=== PATIENT | female | born 1950 | race African-American/Black ===

== ENCOUNTER → 2016-10-08 | Outpatient (CLI) | payer MEDICAID ==
[2016-10-08 10:38] LABS: ANION GAP 14 (5-19); BLOOD UREA NITROGEN 10 mg/dL (7-20); CALCIUM 8.8 mg/dL (8.4-10.2); CARBON DIOXIDE 22 mmol/L (22-30); CHLORIDE 112 mmol/L (98-107); CHOLESTEROL 147.48 mg/dL (0-200); Direct HDL 21 mg/dL (>40); GLUCOSE 103 mg/dL (75-110); POTASSIUM 4.3 mmol/L (3.6-5.0); SODIUM 147.7 mmol/L (137-145); TRIGLYCERIDES 87 mg/dL (<150)
[2016-10-08 10:48] LABS: DIRECT LDL 103 mg/dL (<100)
== END ==
LOC: OD 09:40
PROVIDERS: ATTEND Internal Medicine Cardiovascular Disease
DX: I25.10 Atherosclerotic heart disease of native coronary artery without angina pectoris (principal); E78.5 Hyperlipidemia, unspecified; R79.82 Elevated C-reactive protein (CRP); R73.9 Hyperglycemia, unspecified; E74.9 Disorder of carbohydrate metabolism, unspecified; Z98.61 Coronary angioplasty status; Z95.1 Presence of aortocoronary bypass graft
CPT/HCPCS: 36415; 80048; 80061; 83036; 86141

== ENCOUNTER → 2016-12-19 | Outpatient (CLI) | payer MEDICAID ==
[2016-12-19 10:07] LABS: ANION GAP 13 (5-19); BLOOD UREA NITROGEN 8 mg/dL (7-20); CALCIUM 9.4 mg/dL (8.4-10.2); CARBON DIOXIDE 23 mmol/L (22-30); CHLORIDE 109 mmol/L (98-107); CREATININE RESULT 0.83 mg/dL (0.52-1.25); Direct HDL 31 mg/dL (>40); GLUCOSE 91 mg/dL (75-110); POTASSIUM 4.6 mmol/L (3.6-5.0); SODIUM 144.8 mmol/L (137-145); TRIGLYCERIDES 93 mg/dL (<150)
[2016-12-19 10:24] LABS: DIRECT LDL 178 mg/dL (<100)
== END ==
LOC: OD 08:54
PROVIDERS: ATTEND Internal Medicine Cardiovascular Disease
DX: E74.9 Disorder of carbohydrate metabolism, unspecified (principal); E78.5 Hyperlipidemia, unspecified; R73.09 Other abnormal glucose; I25.10 Atherosclerotic heart disease of native coronary artery without angina pectoris; Z98.61 Coronary angioplasty status; F17.200 Nicotine dependence, unspecified, uncomplicated
CPT/HCPCS: 36415; 80048; 80061; 83036

== ENCOUNTER 2017-01-01 21:25 | Emergency (ER) | payer MEDICAID ==
[2017-01-01] MEDS ORDERED: ACETAMINOPHEN 325 MG TABLET PO ONE (23:31)
[2017-01-01] MEDS ORDERED: OXYCODONE-ACETAMINOPHEN 5-325 MG TABLET PO ONE (23:31)
--- NOTE | 2017-01-01 23:33 | ER Document Report ---
ED General - General Chief Complaint: Hip Pain Stated Complaint: HIP PAIN Time Seen by Provider: 01/01/17 23:21 Notes: Patient is a 66-year-old female that comes emergency department with 2 complaints. First complaint is hip pain, she has pain in both hips, worse on the left, this is ongoing since her hip replacements reportedly, she states she also had a fall where she will forward on her knees 2 days ago, states she is slightly worse than usual with increased pains in her left hip. Her other complaint is nonproductive cough with chills and feeling like she is having fevers that started today. She denies shortness of breath, sore throat, headache, abdominal pain, chest pain. She denies flank pain or dysuria. Past medical history of CAD, hypertension, hyperlipidemia, denies history of diabetes. TRAVEL OUTSIDE OF THE [place] IN LAST 30 DAYS: No - Related Data Allergies/Adverse Reactions: No Known Allergies Allergy (Verified 04/05/13 11:13) Past Medical History - General Information source: Patient - Social History Smoking Status: Current Every Day Smoker Smoking Education Provided: Yes - <3 min Drug Abuse: None Lives with: Family Family History: Reviewed & Not Pertinent Patient has suicidal ideation: No Patient has homicidal ideation: No - Past Medical History Cardiac Medical History: Reports: Hx Coronary Artery Disease, Hx Heart Attack - 2008, CABG (2 vessels), Jun 2013 cardiac cath with stent x 1, Hx Hypertension Denies: Hx Atrial Fibrillation, Hx Congestive Heart Failure, Hx Hypercholesterolemia, Hx Peripheral Vascular Disease, Hx Heart Murmur Neurological Medical History: Denies: Hx Cerebrovascular Accident, Hx Seizures Renal/ Medical History: Denies: Hx Peritoneal Dialysis Malignancy Medical History: Denies: Hx Leukemia GI Medical History: Denies: Hx Crohn's Disease, Hx Gastroesophageal Reflux Disease, Hx Hiatal Hernia, Hx Irritable Bowel, Hx Liver Failure, Hx Ulcer Musculoskeltal Medical History: Reports Hx Arthritis, Denies Hx Fibromyalgia, Denies Hx Multiple Sclerosis, Denies Hx Muscular Dystrophy Psychiatric Medical History: Reports: Hx Depression Denies: Hx Bipolar Disorder, Hx Dementia, Hx Post Traumatic Stress Disorder, Hx Schizophrenia Traumatic Medical History: Denies: Hx Fractures Infectious Medical History: Denies: Hx HIV Past Surgical History: Reports: Hx Cardiac Surgery, Hx Coronary Artery Bypass Graft - 2008 (2 vessels), Hx Hysterectomy, Hx Orthopedic Surgery - bilateral hip replacements. Denies: Hx Appendectomy, Hx Bowel Surgery, Hx Section, Hx Cholecystectomy, Hx Colostomy, Hx Gastric Bypass Surgery, Hx Herniorrhaphy, Hx Mastectomy, Hx Pacemaker, Hx Tonsillectomy, Hx Tubal Ligation - Immunizations Hx Diphtheria, Pertussis, Tetanus Vaccination: No - unknown Review of Systems - Review of Systems Constitutional: See HPI EENT: No symptoms reported Cardiovascular: No symptoms reported Respiratory: See HPI Gastrointestinal: No symptoms reported Genitourinary: No symptoms reported Female Genitourinary: No symptoms reported Musculoskeletal: See HPI Skin: No symptoms reported Hematologic/Lymphatic: No symptoms reported Neurological/Psychological: No symptoms reported Physical Exam - Vital signs Vitals: Temp Pulse Resp BP Pulse Ox 100.1 F 95 16 121/72 96 01/01/17 21:29 01/01/17 21:29 01/01/17 21:29 01/01/17 21:29 01/01/17 21:29 Interpretation: Normal - General General appearance: Appears well, Alert In distress: None - HEENT Head: Normocephalic, Atraumatic Eyes: Normal Conjunctiva: Normal Extraocular movements intact: Yes Eyelashes: Normal Pupils: PERRL Nasal: Normal Mouth/Lips: Normal Mucous membranes: Normal Pharynx: Normal Neck: Normal - Respiratory Respiratory status: No respiratory distress Chest status: Nontender Breath sounds: Decreased air movement - mildly decreased bilaterally, otherwise clear and unremarkable, Nonproductive cough - occassional Chest palpation: Normal - Cardiovascular Rhythm: Regular. No: Tachycardia Heart sounds: Normal auscultation, S1 appreciated, S2 appreciated Murmur: No - Abdominal Inspection: Normal Distension: No distension Bowel sounds: Normal Tenderness: Nontender Organomegaly: No organomegaly - Back Back: Normal, Nontender - Extremities General upper extremity: Normal inspection, Nontender, Normal color, Normal ROM , Normal temperature General lower extremity: Other - Patient complains of pain over the anterior proximal thighs bilaterally, pain is worse over the left bursa area, no swelling , no abnormal erythema, range of motion is still intact. Normal distal neurovascular exam - Neurological Neuro grossly intact: Yes Cognition: Normal Orientation: AAOx4 Humble Coma Scale Eye Opening: Spontaneous Humble Coma Scale Verbal: Oriented Humble Coma Scale Motor: Obeys Commands Humble Coma Scale Total: 15 Speech: Normal Motor strength normal: LUE, RUE, LLE, RLE Sensory: Normal - Psychological Associated symptoms: Normal affect, Normal mood - Skin Skin Temperature: Warm Skin Moisture: Dry Skin Color: Normal Course - Re-evaluation Re-evalutation: Temperature of 100.1, patient has intermittent nonproductive cough on exam with some decreased breath sounds. Patient also has hip pain, although this is chronic. No leukocytosis on CBC, chemistry generally unremarkable, urinalysis does not show infection. Chest x-ray shows potential left lower lung mass. No actual fever of 100.4 or greater. No infection source noted. No headache or neck stiffness. Soft abdomen. CAT scan imaging also shows left lower lung mass concerning for malignancy with possible lymph node metastases. Also has incidental findings including cholelithiasis and previous ND which patient already knew about. Patient does not have any chest pain. I discussed these results in detail with both patient and daughter. They state they would like a referral to oncology. Patient will be provided with some medication for pain, provided with a copy of her imaging, she states she will follow-up tomorrow. Discussed return precautions in detail as well, patient and daughter state understanding and agreement. - Vital Signs Vital signs: Temp Pulse Resp BP Pulse Ox 98.4 F 80 18 120/64 99 01/02/17 03:13 01/02/17 03:13 01/02/17 03:13 01/02/17 03:13 01/02/17 03:13 - Laboratory Result Diagrams: 01/02/17 00:20 01/02/17 00:20 Laboratory results interpreted by me: 01/02/17 01/02/17 01/02/17 00:02 00:20 00:20 Hgb 11.4 L Hct 35.2 L RDW 16.2 H Chloride 109 H AST 37 H Urine Urobilinogen 4.0 H Discharge - Discharge Clinical Impression: Cough, Lung mass Hip pain Qualifiers: Laterality: bilateral Qualified Code(s): M25.551 - Pain in right hip Condition: Stable Disposition: HOME, SELF-CARE Additional Instructions: No evidence of infection, x-rays of the hip do not show any abnormality, however your workup indicates what appears to be a cancerous mass in the left lung with possible spreading to lymph nodes in your chest. This is not confirmed, however this needs close follow-up with oncology. Please follow-up with the referral given. Take the pain medication if needed, if you do please take the stool softener to avoid constipation. Return to emergency department for any concerning or worsening symptoms including difficulty breathing, spiking fever, or any other concerning symptoms. Prescriptions: Morphine Sulfate [Morphine Ir 15 Mg Tablet] 15 mg PO Q4HP PRN #20 tablet PRN Reason: Docusate Sodium [Colace 100 mg Capsule] 100 mg PO DAILY #30 capsule Referrals: FARHAT WALKER MD [ACTIVE STAFF] - Follow up tomorrow
[2017-01-02 00:38] LABS: ABSOLUTE EOSINOPHILS # (AUTO) 0.2 10^3/uL (0.0-0.6); ABSOLUTE LYMPHOCYTES (AUTO) 2.2 10^3/uL (0.5-4.7); ABSOLUTE MONOCYTES (AUTO) 0.7 10^3/uL (0.1-1.4); ABSOLUTE NEUT (AUTO) 4.2 10^3/uL (1.7-8.2); BASOPHILS % (AUTO) 0.6 % (0-2); EOSINOPHILS % (AUTO) 2.2 % (0-6); HEMATOCRIT 35.2 % (36.0-47.0); HEMOGLOBIN 11.4 g/dL (12.0-15.5); LYMPHOCYTES % (AUTO) 30.2 % (13-45); MEAN CORPUSCULAR HEMOGLOBIN 30.4 pg (27.0-33.4); MEAN CORPUSCULAR HGB CONC 32.4 g/dL (32.0-36.0); MEAN CORPUSCULAR VOLUME 94 fl (80-97); RED BLOOD COUNT 3.76 10^6/uL (3.72-5.28); RED CELL DISTRIBUTION WIDTH 16.2 % (11.5-14.0); WHITE BLOOD COUNT 7.4 10^3/uL (4.0-10.5)
[2017-01-02 00:47] LABS: APPEARANCE,URINE SLIGHTLY-CLOUDY; BILIRUBIN,URINE NEGATIVE (NEGATIVE); GLUCOSE, URINE NEGATIVE (NEGATIVE); KETONES,URINE NEGATIVE (NEGATIVE); LEUKOCYTE ESTERASE,URINE NEGATIVE (NEGATIVE); NITRITE,URINE NEGATIVE (NEGATIVE); PROTEIN,URINE NEGATIVE (NEGATIVE); URINE SPECIFIC GRAVITY 1.012
[2017-01-02 00:54] LABS: ALANINE AMINOTRANSFERASE 44 U/L (9-52); ALBUMIN 3.8 g/dL (3.5-5.0); ALKALINE PHOSPHATASE 83 U/L (38-126); ANION GAP 10 (5-19); ASPARTATE AMINO TRANSFERASE 37 U/L (14-36); BILIRUBIN,DIRECT 0.4 mg/dL (0.0-0.4); BILIRUBIN,TOTAL 0.4 mg/dL (0.2-1.3); BLOOD UREA NITROGEN 7 mg/dL (7-20); CALCIUM 8.9 mg/dL (8.4-10.2); CARBON DIOXIDE 25 mmol/L (22-30); CHLORIDE 109 mmol/L (98-107); CREATININE RESULT 0.73 mg/dL (0.52-1.25); GLUCOSE 100 mg/dL (75-110); POTASSIUM 4.1 mmol/L (3.6-5.0); SODIUM 143.8 mmol/L (137-145); TOTAL PROTEIN 7.5 g/dL (6.3-8.2)
--- NOTE | 2017-01-02 01:16 | RADIOLOGY REPORT (SQ) ---
EXAM DESCRIPTION: CHEST PA/LAT COMPLETED DATE/TIME: 01/02/2017 1:05 am REASON FOR STUDY: cough, fevers COMPARISON: Chest x-ray 05/12/2015, 02/28/2015. EXAM PARAMETERS: NUMBER OF VIEWS: two views TECHNIQUE: Digital Frontal and Lateral radiographic views of the chest acquired. RADIATION DOSE: NA LIMITATIONS: none FINDINGS: LUNGS AND PLEURA: There is a 3 cm airspace opacity in the left lower lobe. No pleural eff usion or pneumothorax. MEDIASTINUM AND HILAR STRUCTURES: No contour abnormalities. HEART AND VASCULAR STRUCTURES: Heart normal size. No evidence for failure. BONES: No acute findings. HARDWARE: Sternotomy wires are present. IMPRESSION: 3.0 cm airspace opacity in the left lower lobe, worrisome for a mass. CT thorax recomme nded for further evaluation. TECHNICAL DOCUMENTATION: JOB ID: [id number] [place]-[id number] 2010 [employer]- All Rights Reserved
--- NOTE | 2017-01-02 01:21 | RADIOLOGY REPORT (SQ) ---
EXAM DESCRIPTION: HIP BILATERAL COMPLETED DATE/TIME: 01/02/2017 1:05 am REASON FOR STUDY: fall, pains (worse on left) . Pain after hip replacements, worse after falling on to knees several days ago. COMPARISON: Left hip x-ray 10/31/2015, 05/12/2015. NUMBER OF VIEWS: Three views. TECHNIQUE: AP pelvis and additional frog-leg views of the right hip and left hip. LIMITATIONS: None. FINDINGS: The patient is status post bilateral total hip arthroplasties. The orthopedic hardware is intact. The bilateral hip joints are maintained. There is no evidence for acute fracture or disloc ation. The pelvic ring appears intact. Degenerative changes are seen at the bilateral sacroiliac evans ints and in the visualized lower lumbar spine. IMPRESSION: Status post bilateral total hip arthroplasties. No radiographic evidence for acute frac ture. TECHNICAL DOCUMENTATION: JOB ID: [id number] [place]-[id number] 2010 [email or web address]- All Rights Reserved
[2017-01-02] MEDS ORDERED: ONDANSETRON HCL INJ/PF 4 MG/2 ML SDV IV ONE (02:45)
[2017-01-02] MEDS ORDERED: MORPHINE SULFATE 10 MG/ML INJ IV ONE (02:45)
--- NOTE | 2017-01-02 03:04 | RADIOLOGY REPORT (SQ) ---
EXAM DESCRIPTION: CT CHEST WITH COMPLETED DATE/TIME: 01/02/2017 1:32 am REASON FOR STUDY: cough, fever; eval possible mass COMPARISON: Chest x-ray 01/02/2017. TECHNIQUE: CT scan of the chest performed using helical scanning technique with dynamic intravenous contrast injection. Images reviewed with lung, soft tissue and bone windows. Reconstructed coronal and sagittal MPR images reviewed. All images stored on PACS. All CT scanners at this facility use dose modulation, iterative reconstruction, and/or weight based d osing when appropriate to reduce radiation dose to as low as reasonably achievable (ALARA). [facility]: Dose Right [facility]: CareDose [facility]: Dose Right [facility]: Teradose 4D [facility]: [place] CONTRAST TYPE AND DOSE: contrast/concentration: Isovue 370.00 mg/ml; Total Contrast Delivered: 80.0 ml; Total Saline Delivered: 55.0 ml RENAL FUNCTION: Creatinine 0.73 RADIATION DOSE: Up-to-date CT equipment and radiation dose reduction techniques were employed. CTDIv ol: 14.8 mGy. DLP: 556 mGy-cm. . LIMITATIONS: None. FINDINGS: LUNGS AND PLEURA: There is a 2.9 x 1.6 cm pleural-based mass in the left lower lobe. Mild emphysematous changes are noted. No pleural effusion or pneumothorax. HILAR AND MEDIASTINAL STRUCTURES: Right paratracheal lymph nodes measuring up to 1.4 in short axis. Right hilar lymph node measuring 1.8 cm in short axis. No pathologically enlarged lymph nodes are se en in the left hilar region. HEART AND VASCULAR STRUCTURES: No thoracic aortic aneurysm. The heart is enlarged. The patient is s tatus post open heart surgery. There is a left ventricular apical aneurysm measuring 1.4 x 3.5 cm, t hrombus noted at the site. HARDWARE: None in the chest. UPPER ABDOMEN: There is cholelithiasis. THYROID AND OTHER SOFT TISSUES: The visualized thyroid gland is unremarkable. BONES: Mild multilevel degenerative changes in the spine. IMPRESSION: 2.9 x 1.6 cm pleural-based mass in the left lower lobe, worrisome for malignancy. Furth er evaluation with tissue sampling and PET/ CT recommended. Mediastinal and right hilar adenopathy, metastasis cannot be excluded. This can be also better evalu ated on PET/ CT. Mild emphysema. Cardiomegaly. 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 Correlation with echocardiogram recommended. Cholelithiasis. TECHNICAL DOCUMENTATION: JOB ID: [id number] [place]- Quality ID # 436: Final reports with documentation of one or more dose reduction techniques (e.g., Au tomated exposure control, adjustment of the mA and/or kV according to patient size, use of iterative reconstruction technique) 2010 [employer]- All Rights Reserved
[2017-01-02 03:16] VITALS: BP 120/64
== END 2017-01-02 03:42 | disposition home or self-care (01) ==
LOC: ER 21:25
DX: M25.552 Pain in left hip (principal); W19.XXXA Unspecified fall, initial encounter; M25.551 Pain in right hip; G89.29 Other chronic pain; Z96.643 Presence of artificial hip joint, bilateral; R91.8 Other nonspecific abnormal finding of lung field; K80.20 Calculus of gallbladder without cholecystitis without obstruction; R05 Cough; R68.83 Chills (without fever); F17.200 Nicotine dependence, unspecified, uncomplicated; I25.10 Atherosclerotic heart disease of native coronary artery without angina pectoris; I10 Essential (primary) hypertension; I25.2 Old myocardial infarction; Z95.1 Presence of aortocoronary bypass graft; Z98.61 Coronary angioplasty status
CPT/HCPCS: 99284; 96374; 96375; 36415; 87040; 85025; 80053; 81001; 71020; 73522; 71260; J3490; J2270; J2405

== ENCOUNTER → 2017-01-24 | Outpatient (CLI) | payer MEDICAID ==
--- NOTE | 2017-01-26 14:52 | RADIOLOGY REPORT (SQ) ---
EXAM DESCRIPTION: PET CT SKULL/THIGH COMPLETED DATE/TIME: 01/24/2017 12:49 pm REASON FOR STUDY: LUNG CA (C34.32) C34.32 MALIGNANT NEOPLASM OF LOWER LOBE, LEFT BRONCHUS OR ANGELINE COMPARISON: CT chest 01/02/2017 RADIONUCLIDE AND DOSE: 11.3 mCi F18 FDG The route of agent administration: Intravenous FASTING BLOOD SUGAR: 96 mg/dl CONTRAST TYPE AND DOSE: No CT contrast given. TECHNIQUE: Blood glucose level was verified. Above dose of FDG was injected intravenously. 2-D seg mented attenuation correction images were obtained from the base of the skull to the midthighs. Nonc ontrast CT images were obtained for attenuation correction and fusion with emission images. CT image s were performed without oral or intravenous contrast and are not sensitive for parenchymal lesions. A series of overlapping emission PET images were obtained. Images reviewed and manipulated at [facility] work station by the radiologist. Images stored on PACS. LIMITATIONS: None. FINDINGS: HEAD AND NECK: There is bandlike increased activity throughout the hypopharynx, mucosal ab normality or tumor could not be excluded. SUV 8.2. Consider ENT evaluation with direct visualizatio n. CHEST: In the left lower lobe, a pleural-based 2.6 x 1.5 cm nodule is present on axial image 92 with SUV of 6.6. There is increased interstitial markings with pneumonitis in the posterior right upper lobe and poste rior left upper lobe at the lung apices, with SUV 2.7. Hypermetabolic mediastinal and hilar adenopathy is present as follows: Right paratracheal 2 x 1.2 cm node axial image 65, SUV 5.0 Pretracheal 2.1 x 1.2 cm node axial image 71, SUV 4.3 Left paratracheal/aortopulmonary window lymph node 1.2 x 0.8 cm axial image 71, SUV 4.1 Right hilar 7 mm node axial image 74, SUV 4.3 Left hilar 2 x 1 cm node axial image 79, SUV 4.1 Sub- carinal 1.9 x 1.5 cm node axial image 80, SUV 3.7 ABDOMEN AND PELVIS: No areas of abnormal metabolic activity in the abdomen or pelvis. Expected physi ologic activity is present in the genitourinary system and bowel. PROXIMAL LOWER EXTREMITIES: No areas of abnormal metabolic activity in the soft tissues of the lower extremities. BONES: No abnormal metabolic activity in the visualized skeleton. ADDITIONAL CT FINDINGS: Old sternotomy for CABG, left ventricular aneurysm with mural thrombus 3.5 x 1.4 cm in size, tiny stones in the gallbladder, bilateral total hip replacements OTHER: Baseline liver activity 3.0 SUV, blood pool activity 2.1 SUV. IMPRESSION: Hypermetabolic left lower lobe nodule Hypermetabolic mediastinal adenopathy Increased metabolic activity hypopharyngeal mucosa without well-circumscribed mass by CT TECHNICAL DOCUMENTATION: JOB ID: [id number] [employer]- All Rights Reserved
== END ==
LOC: RAD 08:48
PROVIDERS: ATTEND Internal Medicine
DX: C34.32 Malignant neoplasm of lower lobe, left bronchus or lung (principal)
CPT/HCPCS: 78815; A9552

== ENCOUNTER 2017-01-29 09:06 | Day surgery (SDC) | payer MEDICAID ==
[2017-01-29 09:35] LABS: HEMATOCRIT 34.5 % (36.0-47.0); HEMOGLOBIN 11.4 g/dL (12.0-15.5); HGB HCT DIFFERENCE -0.3; MEAN CORPUSCULAR HEMOGLOBIN 30.5 pg (27.0-33.4); MEAN CORPUSCULAR HGB CONC 33.1 g/dL (32.0-36.0); MEAN CORPUSCULAR VOLUME 92 fl (80-97); RED BLOOD COUNT 3.75 10^6/uL (3.72-5.28); RED CELL DISTRIBUTION WIDTH 16.5 % (11.5-14.0); WHITE BLOOD COUNT 4.7 10^3/uL (4.0-10.5)
[2017-01-29 09:48] LABS: PARTIAL THROMBOPLASTIN TIME 34.5 SEC (23.5-35.8)
[2017-01-29 09:56] LABS: BLOOD UREA NITROGEN 10 mg/dL (7-20); CREATININE RESULT 0.78 mg/dL (0.52-1.25)
[2017-01-29] MEDS ORDERED: MIDAZOLAM 2 MG/2 ML INJ ONE (10:55)
[2017-01-29] MEDS ORDERED: FENTANYL CITRATE INJ/PF 100 MCG/2 ML AMPUL ONE (10:56)
--- NOTE | 2017-01-29 13:14 | RADIOLOGY REPORT (SQ) ---
EXAM DESCRIPTION: CHEST SINGLE VIEW COMPLETED DATE/TIME: 01/29/2017 12:36 pm REASON FOR STUDY: POST LEFT LUNG BIOPSY COMPARISON: Chest films 01/02/2017 CT chest 01/29/2017, 01/02/2017 EXAM PARAMETERS: NUMBER OF VIEWS: One view. TECHNIQUE: Single frontal radiographic view of the chest acquired. RADIATION DOSE: NA LIMITATIONS: None. FINDINGS: LUNGS AND PLEURA: Patient is immediate post left lower lobe lung nodule biopsy. No left-s ided pneumothorax. The biopsied nodule is partly obscured by surrounding hemorrhage, marked with a squaxin just above the left hemidiaphragm. Right lung well inflated and clear. No right or left pleural effusion. MEDIASTINUM AND HILAR STRUCTURES: No masses. Contour normal. HEART AND VASCULAR STRUCTURES: Stable cardiomegaly and old CABG. BONES: No acute findings. HARDWARE: Old CABG OTHER: No other significant finding. IMPRESSION: No pneumothorax post left lower lobe lung nodule biopsy. TECHNICAL DOCUMENTATION: JOB ID: [id number]
--- NOTE | 2017-01-29 13:44 | RADIOLOGY REPORT (SQ) ---
EXAM DESCRIPTION: CT BIOPSY LUNG/MEDIASTINUM; CT NEEDLE PLACEMENT COMPLETED DATE/TIME: 01/29/2017 12:17 pm; 01/29/2017 12:16 pm REASON FOR STUDY: SOLITARY PULMONARY NODULE; SOLITARY PULMONARY NODULE, LUNG BX R91.1 SOLITARY PULM ONARY NODULE COMPARISON: PET-CT 01/24/2017, CT CHEST 01/02/2017 TECHNIQUE: CT guided biopsy of the pleural-based left lower lobe nodule performed with conscious sed ation. CT Fluoroscopy Time: 12.[address] scanners at this facility use dose modulation, iterative reconstruction, and/or weight based d osing when appropriate to reduce radiation dose to as low as reasonably achievable (ALARA). [facility]: Dose Right [facility]: CareDose [facility]: Dose Right [facility]: Teradose 4D [facility]: panOpen RADIATION DOSE: mGy. FINDINGS: The procedure was discussed with the patient and the patient agreed to the procedure. Prio r to the procedure, a time out was performed to verify the patient's identity and planned procedure. IV sedation was administered and physician direction by the registered nurse using 1 milligrams of Ve rsed and 50 micrograms of fentanyl. Physiologic monitoring was provided before, during, and after sed ation. The total sedation time was 30 minutes. Documentation face to face time, the performing proceduralist, spent monitoring the patient: [address] scanning was performed to localize the percutaneous site for the biopsy approach. After sterile skin prep and local lidocaine for skin and deep tissue anesthesia, a coaxial biopsy nee dle was used to obtain multiple cores of tissue. Biopsy tract was embolized with a [employer] closure device. The biopsy tissue was submitted to the lab in formalin. There were no immediate complications . Pathology is pending at the time of dictation. Immediate post procedure chest x-ray dictated separately demonstrates no left pneumothorax. IMPRESSION: CT GUIDED BIOPSY OF THE LEFT LOWER LOBE PLEURAL-BASED NODULE PERFORMED WITHOUT IMMEDIATE COMPLICATION. PATHOLOGY PENDING. COMMENT: Quality ID 145: Final reports for procedures using fluoroscopy that document radiation exp osure indices, or exposure time and number of fluorographic images (if radiation exposure indices are not available) Patient medication list reviewed: Yes- Quality ID# [id number]:Eligible professional attests to documenting i n the medical record they obtained, updated, or reviewed the patient's current medications.. TECHNICAL DOCUMENTATION: JOB ID: [id number] Quality ID# 436: Final reports with documentation of one or more dose reduction techniques (e.g., Aut omated exposure control, adjustment of the mA and/or kV according to patient size, use of iterative r econstruction technique) 2010 [employer]- All Rights Reserved
--- NOTE | 2017-01-29 15:07 | RADIOLOGY REPORT (SQ) ---
EXAM DESCRIPTION: CHEST SINGLE VIEW COMPLETED DATE/TIME: 01/29/2017 2:47 pm REASON FOR STUDY: POST LEFT LUNG BIOPSY --- 2 HR FILM COMPARISON: AP chest 1222 hours same date EXAM PARAMETERS: NUMBER OF VIEWS: AP chest 01/29/2017 1436 hours TECHNIQUE: Single frontal radiographic view of the chest acquired. RADIATION DOSE: NA LIMITATIONS: None. FINDINGS: LUNGS AND PLEURA: No pneumothorax 2 hours post left lung nodule biopsy. Nodule is identif ied just above the left hemidiaphragm along the left heart border on frontal portable chest film. No acute infiltrates. No pleural effusion. MEDIASTINUM AND HILAR STRUCTURES: No masses. Contour normal. HEART AND VASCULAR STRUCTURES: Stable cardiomegaly and old CABG BONES: No acute findings. HARDWARE: None in the chest. OTHER: No other significant finding. IMPRESSION: No pneumothorax 2 hours post left lung nodule biopsy. Results called to ambulatory surg brandan. TECHNICAL DOCUMENTATION: JOB ID: [id number]
[2017-01-29 15:16] VITALS: BP 119/60
== END 2017-01-29 14:45 | disposition home or self-care (01) ==
LOC: RAD 09:06
PROVIDERS: ATTEND Internal Medicine Hematology & Oncology
PROC: 0BBJ3ZX Excision of Left Lower Lung Lobe, Percutaneous Approach, Diagnostic (ICD-10-PCS; principal; 2017-01-29)
DX: R91.1 Solitary pulmonary nodule (principal); M19.90 Unspecified osteoarthritis, unspecified site; I25.10 Atherosclerotic heart disease of native coronary artery without angina pectoris; I10 Essential (primary) hypertension; Z96.643 Presence of artificial hip joint, bilateral; F17.210 Nicotine dependence, cigarettes, uncomplicated; I25.2 Old myocardial infarction; Z95.1 Presence of aortocoronary bypass graft; Z79.899 Other long term (current) drug therapy; Z79.51 Long term (current) use of inhaled steroids
CPT/HCPCS: 36415; 84520; 82565; 85027; 85610; 85730; 88305 ×2; 71010; 77012; 32405; J2250; J3010

== ENCOUNTER 2017-02-09 20:05 | Emergency (ER) | payer MEDICAID ==
[2017-02-09] MEDS ORDERED: ASPIRIN 81 MG TABLET, CHEWABLE PO ONE (20:06)
[2017-02-09] MEDS ORDERED: ONDANSETRON HCL INJ/PF 4 MG/2 ML SDV ONE (20:42)
[2017-02-09] MEDS ORDERED: MORPHINE SULFATE 10 MG/ML INJ ONE ×2 (20:42→23:05)
[2017-02-09] MEDS ORDERED: NITROGLYCERIN 0.4 MG/TAB 25 TAB/BOTTLE ONE (20:43)
[2017-02-09 20:44] LABS: ABSOLUTE EOSINOPHILS # (AUTO) 0.1 10^3/uL (0.0-0.6); ABSOLUTE LYMPHOCYTES (AUTO) 1.5 10^3/uL (0.5-4.7); ABSOLUTE MONOCYTES (AUTO) 0.6 10^3/uL (0.1-1.4); ABSOLUTE NEUT (AUTO) 3.7 10^3/uL (1.7-8.2); BASOPHILS % (AUTO) 0.7 % (0-2); HEMATOCRIT 36.4 % (36.0-47.0); HEMOGLOBIN 12.1 g/dL (12.0-15.5); HGB HCT DIFFERENCE -0.1; LYMPHOCYTES % (AUTO) 25.6 % (13-45); MEAN CORPUSCULAR HEMOGLOBIN 31.2 pg (27.0-33.4); MEAN CORPUSCULAR HGB CONC 33.2 g/dL (32.0-36.0); MEAN CORPUSCULAR VOLUME 94 fl (80-97); MONOCYTES % (AUTO) 9.9 % (3-13); RED BLOOD COUNT 3.88 10^6/uL (3.72-5.28); RED CELL DISTRIBUTION WIDTH 16.7 % (11.5-14.0); SEGMENTED NEUTROPHILS % (AUTO) 62.8 % (42-78); WHITE BLOOD COUNT 5.8 10^3/uL (4.0-10.5)
--- NOTE | 2017-02-09 20:46 | ER Document Report ---
ED General - General Stated Complaint: CHEST PAIN,SHORTNESS OF BREATH Time Seen by Provider: 02/09/17 20:33 Mode of Arrival: Medic Information source: Patient Notes: This is a 66-year-old female with a history of coronary artery disease (DE, CABG , stents 2), CVA, hypertension. Patient presents to the emergency room with several hours of retrosternal nonradiating chest discomfort. Patient states it is associated with shortness of breath. She also states she is been having nausea and vomiting. Time of onset: The best that can be established with this patient is at the pain started somewhere between noon and 4 PM today. The pain was cyclical and would come and go. Later in the afternoon, the pain became more constant. TRAVEL OUTSIDE OF THE [place] IN LAST 30 DAYS: No - HPI Onset: Just prior to arrival Onset/Duration: Gradual Quality of pain: Dull Severity: Severe Pain Level: 5 Associated symptoms: Chest pain, Nausea, Vomiting, Shortness of breath. denies : Fever Exacerbated by: Denies Relieved by: Denies Similar symptoms previously: Yes Recently seen / treated by doctor: No - Related Data Allergies/Adverse Reactions: No Known Allergies Allergy (Verified 02/09/17 22:37) Home Medications: Current Home Medications Carvedilol 25 mg PO BID 02/09/17 [History] Ergocalciferol (Vitamin D2) [Vitamin D2] 2 cap PO Q7D 02/09/17 [History] Spironolactone [Spironolactone] 25 mg PO QAM 02/09/17 [History] Past Medical History - General Information source: Patient - Social History Smoking Status: Never Smoker Cigarette use (# per day): No Chew tobacco use (# tins/day): No Frequency of alcohol use: None Drug Abuse: None Lives with: Family Family History: Reviewed & Not Pertinent Patient has suicidal ideation: No Patient has homicidal ideation: No - Past Medical History Cardiac Medical History: Reports: Hx Coronary Artery Disease, Hx Heart Attack - 2008, CABG (2 vessels), Jun 2013 cardiac cath with stent x 1, Hx Hypertension Denies: Hx Atrial Fibrillation, Hx Congestive Heart Failure, Hx Hypercholesterolemia, Hx Peripheral Vascular Disease, Hx Heart Murmur Pulmonary Medical History: Reports: Hx COPD Denies: Hx Asthma, Hx Bronchitis, Hx Pneumonia Neurological Medical History: Denies: Hx Cerebrovascular Accident, Hx Seizures Renal/ Medical History: Denies: Hx Peritoneal Dialysis Malignancy Medical History: Denies: Hx Leukemia GI Medical History: Denies: Hx Crohn's Disease, Hx Gastroesophageal Reflux Disease, Hx Hiatal Hernia, Hx Irritable Bowel, Hx Liver Failure, Hx Ulcer Musculoskeltal Medical History: Reports Hx Arthritis, Denies Hx Fibromyalgia, Denies Hx Multiple Sclerosis, Denies Hx Muscular Dystrophy Psychiatric Medical History: Reports: Hx Depression Denies: Hx Bipolar Disorder, Hx Dementia, Hx Post Traumatic Stress Disorder, Hx Schizophrenia Traumatic Medical History: Denies: Hx Fractures Infectious Medical History: Denies: Hx HIV Past Surgical History: Reports: Hx Cardiac Surgery, Hx Coronary Artery Bypass Graft - 2009 (2 vessels), Hx Hysterectomy, Hx Orthopedic Surgery - bilateral hip replacements. Denies: Hx Appendectomy, Hx Bowel Surgery, Hx Section, Hx Cholecystectomy, Hx Colostomy, Hx Gastric Bypass Surgery, Hx Herniorrhaphy, Hx Mastectomy, Hx Pacemaker, Hx Tonsillectomy, Hx Tubal Ligation - Immunizations Hx Diphtheria, Pertussis, Tetanus Vaccination: No - unknown Review of Systems - Review of Systems Constitutional: denies: Chills, Fever EENT: No symptoms reported Cardiovascular: See HPI Respiratory: See HPI Gastrointestinal: No symptoms reported Genitourinary: No symptoms reported Female Genitourinary: No symptoms reported Musculoskeletal: No symptoms reported Skin: No symptoms reported Hematologic/Lymphatic: No symptoms reported Neurological/Psychological: No symptoms reported Physical Exam - Vital signs Vitals: Pulse Ox 94 08//17 20:20 Notes: Physical exam: GENERAL: 66-year-old female, ill-appearing, complaining of chest pain. HEAD: Atraumatic, normocephalic. EYES: Pupils equal round and reactive to light, extraocular movements intact, sclera anicteric, conjunctiva are normal. ENT: TMs normal, nares patent, oropharynx clear without exudates. dry mucous membranes. NECK: Normal range of motion, supple without lymphadenopathy or JVD. LUNGS: Breath sounds clear to auscultation bilaterally and equal. No wheezes rales or rhonchi. HEART: Regular rate and rhythm without murmurs, rubs or gallops. ABDOMEN: Soft, normoactive bowel sounds. No tenderness to palpation. No guarding, no rebound. No masses appreciated. EXTREMITIES: Normal range of motion, no pitting or edema. No clubbing or cyanosis. NEUROLOGICAL: Cranial nerves II through XII grossly intact. Normal speech, normal gait. PSYCH: Normal mood, normal affect. SKIN: Warm, Dry, normal turgor, no rashes or lesions noted. Course - Re-evaluation Re-evalutation: 02/09/17 23:54 The last EKG that we have to compare is from 2014 which showed sinus rhythm with diffuse T waves anteriorly and possibly some concave ST segments in V4 and V5. The EKG tonight shows sinus rhythm with possible mild concave ST elevations in V4 V5. It is very difficult to see if this is exactly the same as previous. The T segments anteriorly are significantly less pronounced which could be some pseudonormalization of the T waves or it simply could have been her baseline and that we just do not have a recent enough EKG. I have repeated the EKG several times and it does not seem to change. The patient's chest pain has persisted and I have started her on an IV nitro drip. She does not tolerate much nitro at all before dropping her pressure so I am giving her IV fluids. Her initial troponin is elevated consistent with an acute coronary syndrome. The patient was given Lovenox and aspirin. 02/09/17 23:57 I discussed case with Dr. Jas Blount in [place] and they will accept the patient. 02/10/17 00:04 On reassessment of the patient: She is still having persistent retrosternal chest pain radiating down the left arm. She is a 20 mics of nitroglycerin. Her blood pressure is 110 over 65 at this time. Thank you transport is here and they will give her small amounts of fentanyl as well. In summary: The patient has received aspirin, 80 mg subcu Lovenox, nitroglycerin sublingual , IV normal saline fluid bolus, IV morphine, IV nitroglycerin drip. - Vital Signs Vital signs: Temp Pulse Resp BP Pulse Ox 98 F 18 103/80 92 02/09/17 23:51 02/10/17 00:00 02/09/17 23:56 02/10/17 00:00 - Laboratory Result Diagrams: 02/09/17 20:30 02/09/17 21:10 Laboratory results interpreted by me: 02/09/17 02/09/17 02/09/17 20:30 21:10 21:10 RDW 16.7 H Chloride 111 H Glucose 114 H CK-MB (CK-2) 9.60 H - Diagnostic Test Radiology reviewed: Image reviewed, Reports reviewed Critical Care Note - Critical Care Note Total time excluding time spent on procedures (mins): 90 Discharge - Discharge Clinical Impression: Acute coronary syndrome Condition: Serious Disposition: [facility]
[2017-02-09] MEDS: NORMAL SALINE 500 ML IV PRN ×2 (21:02→22:51)
--- NOTE | 2017-02-09 21:12 | EKG REPORT ---
SEVERITY:- ABNORMAL ECG - SINUS TACHYCARDIA VENTRICULAR TRIGEMINY CONSIDER INFERIOR INFARCT PROBABLE ANTEROLATERAL INFARCT, OLD : Confirmed by: Nicholas Chaudhry MD 09-Feb-2017 21:12:12
--- NOTE | 2017-02-09 21:12 | EKG REPORT ---
SEVERITY:- ABNORMAL ECG - SINUS TACHYCARDIA VENTRICULAR TRIGEMINY INFERIOR INFARCT, AGE INDETERMINATE LATERAL INFARCT, AGE INDETERMINATE CONSIDER ANTERIOR INFARCT, OLD : Confirmed by: Nicholas Chaudhry MD 09-Feb-2017 21:11:59
[2017-02-09 21:34] LABS: ALANINE AMINOTRANSFERASE 20 U/L (9-52); ALBUMIN 3.6 g/dL (3.5-5.0); ALKALINE PHOSPHATASE 83 U/L (38-126); ANION GAP 10 (5-19); ASPARTATE AMINO TRANSFERASE 18 U/L (14-36); BILIRUBIN,DIRECT 0.4 mg/dL (0.0-0.4); BILIRUBIN,TOTAL 0.5 mg/dL (0.2-1.3); BLOOD UREA NITROGEN 8 mg/dL (7-20); CALCIUM 9.1 mg/dL (8.4-10.2); CARBON DIOXIDE 22 mmol/L (22-30); CHLORIDE 111 mmol/L (98-107); CREATINE KINASE 135 U/L (30-135); CREATININE RESULT 0.77 mg/dL (0.52-1.25); GLUCOSE 114 mg/dL (75-110); POTASSIUM 3.9 mmol/L (3.6-5.0); SODIUM 142.5 mmol/L (137-145)
[2017-02-09] MEDS ORDERED: NORMAL SALINE 1000 ML 1,000 ML IV PRN (21:40)
[2017-02-09] MEDS ORDERED: NITROGLYCERIN 2% OINTMENT 1 GM PACKET TP ONE (21:44)
[2017-02-09 21:46] LABS: CREATINE KINASE MB 9.6 ng/mL (<4.55)
[2017-02-09 21:48] LABS: TROPONIN I 0.429 ng/mL
[2017-02-09] MEDS ORDERED: NITROGLYCERIN/D5W 50 MG/250 ML RTUINJ IV PRN (21:56)
[2017-02-09] MEDS ORDERED: ENOXAPARIN SODIUM INJ 100 MG/1 ML DISP.SYRIN SUBCUT ONE (22:02)
--- NOTE | 2017-02-09 22:05 | RADIOLOGY REPORT (SQ) ---
EXAM DESCRIPTION: CHEST SINGLE VIEW COMPLETED DATE/TIME: 02/09/2017 9:53 pm REASON FOR STUDY: cp COMPARISON: 01/29/2017 EXAM PARAMETERS: NUMBER OF VIEWS: One view. TECHNIQUE: Single frontal radiographic view of the chest acquired. RADIATION DOSE: NA LIMITATIONS: None. FINDINGS: LUNGS AND PLEURA: No opacities, masses or pneumothorax. No pleural effusion. MEDIASTINUM AND HILAR STRUCTURES: No masses. Contour normal. HEART AND VASCULAR STRUCTURES: The configuration of the heart and mediastinal structures is unchanged . BONES: No acute findings. HARDWARE: Patient is status post median sternotomy. OTHER: No other significant finding. IMPRESSION: NO ACUTE RADIOGRAPHIC FINDING IN THE CHEST. TECHNICAL DOCUMENTATION: JOB ID: [id number]
[2017-02-10 00:05] VITALS: BP 110/69
--- NOTE | 2017-02-10 08:43 | EKG REPORT ---
SEVERITY:- ABNORMAL ECG - SINUS TACHYCARDIA MULTIPLE VENTRICULAR PREMATURE COMPLEXES PROBABLE LEFT ATRIAL ABNORMALITY BORDERLINE INFERIOR Q WAVES ANTEROLATERAL INFARCT, AGE INDETERMINATE : Confirmed by: Cara Hendrickson 10-Feb-2017 08:43:09
== END 2017-02-10 00:20 | disposition short-term general hospital (02) ==
LOC: ER 20:05
DX: I24.9 Acute ischemic heart disease, unspecified (principal); I25.10 Atherosclerotic heart disease of native coronary artery without angina pectoris; Z95.1 Presence of aortocoronary bypass graft; I10 Essential (primary) hypertension
CPT/HCPCS: 93005; 96376; 99291; 99292; 96372; 96361; 96374; 96375; 36415; 82553; 82550; 85025; 80053; 84484; 71010; 93010; J2270; J3490 ×2; J2405; J7030; J7040; J1650

== ENCOUNTER 2017-10-03 16:16 | Emergency (ER) | payer MEDICARE, MEDICAID ==
--- NOTE | 2017-10-03 17:43 | ER Document Report ---
ED General - General Chief Complaint: Syncope Stated Complaint: POSSIBLE STROKE Time Seen by Provider: 10/03/17 17:41 Notes: The patient is a 67-year-old female, past medical history CAD s/p 2 vessel CABG in 2008, 2 stents in 2013 at [facility], hypertension, "blood clot in heart" (on Coumadin), prior CVA, presents after she was with a family member at a doctor's appointment when she had mild shortness of breath, became diaphoretic and then briefly syncopized while in the waiting room chair. She arrived to the ER and was having no symptoms. Patient denies focal weakness, numbness, tingling, chest pain, leg swelling, hemoptysis, nausea, vomiting, back pain, fevers, abdominal pain or headache. TRAVEL OUTSIDE OF THE [place] IN LAST 30 DAYS: No - Related Data Allergies/Adverse Reactions: lisinopril Allergy (Severe, Verified 10/03/17 17:55) Past Medical History - General Information source: Patient, Relative - Social History Smoking Status: Unknown if Ever Smoked Family History: Reviewed & Not Pertinent - Past Medical History Cardiac Medical History: Reports: Hx Coronary Artery Disease, Hx Heart Attack - 2008, CABG (2 vessels), Jun 2013 cardiac cath with stent x 1, Hx Hypertension Denies: Hx Atrial Fibrillation, Hx Congestive Heart Failure, Hx Hypercholesterolemia, Hx Peripheral Vascular Disease, Hx Heart Murmur Pulmonary Medical History: Reports: Hx COPD Denies: Hx Asthma, Hx Bronchitis, Hx Pneumonia Neurological Medical History: Denies: Hx Cerebrovascular Accident, Hx Seizures Renal/ Medical History: Denies: Hx Peritoneal Dialysis Malignancy Medical History: Denies: Hx Leukemia GI Medical History: Denies: Hx Crohn's Disease, Hx Gastroesophageal Reflux Disease, Hx Hiatal Hernia, Hx Irritable Bowel, Hx Liver Failure, Hx Pancreatitis , Hx Ulcer Musculoskeltal Medical History: Reports Hx Arthritis, Denies Hx Fibromyalgia, Denies Hx Multiple Sclerosis, Denies Hx Muscular Dystrophy Psychiatric Medical History: Reports: Hx Depression Denies: Hx Bipolar Disorder, Hx Dementia, Hx Post Traumatic Stress Disorder, Hx Schizophrenia Traumatic Medical History: Denies: Hx Fractures Infectious Medical History: Denies: Hx HIV Past Surgical History: Reports: Hx Cardiac Catheterization - STENT X 2, Hx Cardiac Surgery, Hx Coronary Artery Bypass Graft - 2008 (2 vessels), Hx Hysterectomy, Hx Orthopedic Surgery - bilateral hip replacements. Denies: Hx Appendectomy, Hx Bowel Surgery, Hx Section, Hx Cholecystectomy, Hx Colostomy, Hx Gastric Bypass Surgery, Hx Herniorrhaphy, Hx Mastectomy, Hx Pacemaker, Hx Tonsillectomy, Hx Tubal Ligation - Immunizations Hx Diphtheria, Pertussis, Tetanus Vaccination: No - unknown Review of Systems - Review of Systems Notes: REVIEW OF SYSTEMS: CONSTITUTIONAL: -fevers, -chills EENT: -eye pain, -difficulty swallowing, -nasal congestion CARDIOVASCULAR: -chest pain, +syncope. RESPIRATORY: -cough, +SOB GASTROINTESTINAL: -abdominal pain, -nausea, -vomiting, -diarrhea GENITOURINARY: -dysuria, -hematuria MUSCULOSKELETAL: -back pain, -neck pain SKIN: -rash or skin lesions. HEMATOLOGIC: -easy bruising or bleeding. LYMPHATIC: -swollen, enlarged glands. NEUROLOGICAL: -altered mental status or loss of consciousness, -headache, - neurologic symptoms PSYCHIATRIC: -anxiety, -depression. ALL OTHER SYSTEMS REVIEWED AND NEGATIVE. Physical Exam - Vital signs Vitals: Temp Pulse Resp BP Pulse Ox 97.9 F 77 18 123/67 98 10/03/17 16:50 10/03/17 16:50 10/03/17 16:50 10/03/17 16:50 10/03/17 16:50 - Notes Notes: PHYSICAL EXAMINATION: GENERAL: Well-appearing, well-nourished and in no acute distress. HEAD: Atraumatic, normocephalic. EYES: Pupils equal round and reactive to light, extraocular movements intact, sclera anicteric, conjunctiva are normal. ENT: nares patent, oropharynx clear without exudates. Moist mucous membranes. NECK: Normal range of motion, supple without lymphadenopathy LUNGS: Breath sounds clear to auscultation bilaterally and equal. No wheezes rales or rhonchi. HEART: Regular rate and rhythm without murmurs ABDOMEN: Soft, nontender, normoactive bowel sounds. No guarding, no rebound. No masses appreciated. EXTREMITIES: Normal range of motion, no pitting or edema. No cyanosis. NEUROLOGICAL: Cranial nerves grossly intact. Normal speech, normal gait. Normal sensory and motor exams. PSYCH: Normal mood, normal affect. SKIN: Warm, Dry, normal turgor, no rashes or lesions noted. Course - Re-evaluation Re-evalutation: I saw the patient's EKG at 17:55 and immediately saw the patient when she was roomed. Concern for Wellens syndrome with new biphasic T waves in V2 and V3. Patient currently asymptomatic and she is hemodynamically stable. 10/03/17 18:00 Called over to [facility] for transfer. Initially called STEMI line and spoke to Dr. Hannah (ED Physician) who requests speaking to transfer center for direct admission. Awaiting callback. 10/03/17 18:18 Pt going into frequent episodes of V. tach on the monitor. She is having 3 beats of V. tach every 6-8 seconds. She remains asymptomatic during these episodes. Amiodarone provided to patient. 10/03/17 20:25 Call from Transfer Center. Menu Planner at [facility] with several new sick patients and will call back STACIE. Pt remains HD stable with less V. tach episodes. 10/03/17 19:[address] Travis ([facility]) and requesting another EKG to decide if patient goes to ICU or Cardiology. 10/03/17 20:[address] Travis has accepted. 10/03/17 23:47 Pt reevaluated and remains stable for transport. - Vital Signs Vital signs: Temp Pulse Resp BP Pulse Ox 98.5 F 77 19 141/99 H 97 10/03/17 19:55 10/03/17 18:29 10/03/17 23:01 10/03/17 23:01 10/03/17 23:01 - Laboratory Result Diagrams: 10/03/17 18:03 10/03/17 18:03 Laboratory results interpreted by me: 10/03/17 10/03/17 10/03/17 18:03 18:03 18:03 Hgb 11.5 L Hct 35.3 L RDW 16.3 H PT 29.3 H APTT 54.3 H Sodium 145.7 H Chloride 109 H Urine Protein Urine Urobilinogen 10/03/17 18:43 Hgb Hct RDW PT APTT Sodium Chloride Urine Protein 30 H Urine Urobilinogen 4.0 H - Diagnostic Test Radiology reviewed: Image reviewed, Reports reviewed Radiology results interpreted by me: CXR: APPARENT DECREASE IN SIZE OF LEFT LUNG MASS. CORRELATE WITH CLINICAL HISTORY. NO DEFINITE ACUTE CARDIOPULMONARY PROCESS IDENTIFIED. - EKG Interpretation by Me EKG shows normal: Sinus rhythm Rate: Normal When compared to previous EKG there are: Changes noted Additional EKG results interpreted by me: New biphasic T-waves in V2-V4. Critical Care Note - Critical Care Note Total time excluding time spent on procedures (mins): 55 Discharge - Discharge Clinical Impression: Wellen's Syndrome, Ventricular tachycardia (paroxysmal) Syncope Qualifiers: Syncope type: unspecified Qualified Code(s): R55 - Syncope and collapse Condition: Stable Disposition: [facility]
[2017-10-03] MEDS ORDERED: ASPIRIN 325 MG TABLET PO ONE (18:10)
[2017-10-03] MEDS ORDERED: AMIODARONE HCL 150 MG in DEXTROSE 5%-WATER 100 ML IV ONE (18:18)
[2017-10-03] MEDS ORDERED: DEXTROSE 5%-WATER 500 ML with AMIODARONE HCL 900 MG IV PRN ×2 (18:18)
[2017-10-03 18:22] LABS: ABSOLUTE EOSINOPHILS # (AUTO) 0.3 10^3/uL (0.0-0.6); ABSOLUTE LYMPHOCYTES (AUTO) 1.2 10^3/uL (0.5-4.7); ABSOLUTE MONOCYTES (AUTO) 0.4 10^3/uL (0.1-1.4); ABSOLUTE NEUT (AUTO) 2.9 10^3/uL (1.7-8.2); BASOPHILS % (AUTO) 0.5 % (0-2); EOSINOPHILS % (AUTO) 5.7 % (0-6); HEMATOCRIT 35.3 % (36.0-47.0); HEMOGLOBIN 11.5 g/dL (12.0-15.5); LYMPHOCYTES % (AUTO) 24.5 % (13-45); MEAN CORPUSCULAR HEMOGLOBIN 30.5 pg (27.0-33.4); MEAN CORPUSCULAR HGB CONC 32.5 g/dL (32.0-36.0); MEAN CORPUSCULAR VOLUME 94 fl (80-97); MONOCYTES % (AUTO) 9.1 % (3-13); PLATELET COUNT 353 10^3/uL (150-450); RED BLOOD COUNT 3.76 10^6/uL (3.72-5.28); RED CELL DISTRIBUTION WIDTH 16.3 % (11.5-14.0); SEGMENTED NEUTROPHILS % (AUTO) 60.2 % (42-78); TOTAL CELLS COUNTED % (AUTO) 100 %; WHITE BLOOD COUNT 4.8 10^3/uL (4.0-10.5)
[2017-10-03] MEDS ORDERED: AMIODARONE HCL INJ 150 MG/3 ML VIAL IV ONE ×2 (18:27)
[2017-10-03 18:35] LABS: INTERNATIONAL RATION (INR) 2.63; PROTHROMBIN TIME 29.3 SEC (11.4-15.4)
[2017-10-03 18:36] LABS: PARTIAL THROMBOPLASTIN TIME 54.3 SEC (23.5-35.8)
[2017-10-03 18:43] LABS: ALANINE AMINOTRANSFERASE 21 U/L (9-52); ALBUMIN 4.1 g/dL (3.5-5.0); ALKALINE PHOSPHATASE 61 U/L (38-126); ANION GAP 11 (5-19); ASPARTATE AMINO TRANSFERASE 16 U/L (14-36); BILIRUBIN,DIRECT 0.3 mg/dL (0.0-0.4); BILIRUBIN,TOTAL 0.6 mg/dL (0.2-1.3); BLOOD UREA NITROGEN 7 mg/dL (7-20); CALCIUM 9.2 mg/dL (8.4-10.2); CARBON DIOXIDE 26 mmol/L (22-30); CHLORIDE 109 mmol/L (98-107); CREATINE KINASE 55 U/L (30-135); GLUCOSE 101 mg/dL (75-110); POTASSIUM 4.2 mmol/L (3.6-5.0); SODIUM 145.7 mmol/L (137-145); TOTAL PROTEIN 7.6 g/dL (6.3-8.2)
[2017-10-03 18:52] LABS: VENOUS BLOOD BASE EXCESS 0.1 mmol/L; VENOUS BLOOD HCO3 25.5 mmol/L (20-32); VENOUS BLOOD PH 7.37 (7.30-7.42)
[2017-10-03 19:06] LABS: APPEARANCE,URINE SLIGHTLY-CLOUDY; BILIRUBIN,URINE NEGATIVE (NEGATIVE); COLOR,URINE YELLOW; GLUCOSE, URINE NEGATIVE (NEGATIVE); KETONES,URINE NEGATIVE (NEGATIVE); LEUKOCYTE ESTERASE,URINE NEGATIVE (NEGATIVE); NITRITE,URINE NEGATIVE (NEGATIVE); PROTEIN,URINE 30 mg/dL (NEGATIVE); URINE SPECIFIC GRAVITY 1.016
--- NOTE | 2017-10-03 19:18 | EKG REPORT ---
SEVERITY:- ABNORMAL ECG - SINUS RHYTHM PAIRED VENTRICULAR PREMATURE COMPLEXES PROBABLE INFERIOR INFARCT, AGE INDETERMINATE LATERAL INFARCT, AGE INDETERMINATE ANTERIOR INFARCT, AGE INDETERMINATE NEED TO R/O /LV ANEURYSM : Confirmed by: Nicholas Chaudhry MD 03-Oct-2017 19:17:44
--- NOTE | 2017-10-03 20:18 | RADIOLOGY REPORT (SQ) ---
EXAM DESCRIPTION: CHEST SINGLE VIEW COMPLETED DATE/TIME: 10/03/2017 8:03 pm REASON FOR STUDY: chest pain COMPARISON: 02/09/2017 EXAM PARAMETERS: NUMBER OF VIEWS: One view. TECHNIQUE: Single frontal radiographic view of the chest acquired. RADIATION DOSE: NA LIMITATIONS: None. FINDINGS: LUNGS AND PLEURA: Left lung mass appears to be less prominent compared to the prior study. No new or enlarging masses. No pleural effusion pneumothorax. MEDIASTINUM AND HILAR STRUCTURES: No masses. Contour normal. HEART AND VASCULAR STRUCTURES: Heart stable in size. Normal vasculature. BONES: No acute findings. HARDWARE: Surgical clips project over the left hemithorax. Stable postsurgical change related to priyanka or CABG. OTHER: No other significant finding. IMPRESSION: APPARENT DECREASE IN SIZE OF LEFT LUNG MASS. CORRELATE WITH CLINICAL HISTORY. NO DEFIN ITE ACUTE CARDIOPULMONARY PROCESS IDENTIFIED. TECHNICAL DOCUMENTATION: JOB ID: [id number] [employer]- All Rights Reserved Reading location - IP/workstation name: [email or web address]
--- NOTE | 2017-10-03 21:44 | RADIOLOGY REPORT (SQ) ---
EXAM DESCRIPTION: CT HEAD WITHOUT COMPLETED DATE/TIME: 10/03/2017 9:32 pm REASON FOR STUDY: AMS COMPARISON: None. TECHNIQUE: Axial images acquired through the brain without intravenous contrast. Images reviewed wi th bone, brain and subdural windows. Images stored on PACS. All CT scanners at this facility use dose modulation, iterative reconstruction, and/or weight based d osing when appropriate to reduce radiation dose to as low as reasonably achievable (ALARA). [facility]: Dose Right [facility]: CareDose [facility]: Dose Right [facility]: Teradose 4D [facility]: [employer] RADIATION DOSE: CT Rad equipment meets quality standard of care and radiation dose reduction techniq ues were employed. CTDIvol: 53.2 mGy. DLP: 1044 mGy-cm. mGy. LIMITATIONS: None. FINDINGS: VENTRICLES: Prominent. CEREBRUM: No masses. No hemorrhage. No midline shift. Areas of low density in the white matter mos t likely due to chronic micro-vascular ischemic change. Small area of low attenuation involving the left posterior frontal lobe series 2, image 21 which may represent subacute or chronic infarction. N o definite CT evidence of acute ischemia. CEREBELLUM: No masses. No hemorrhage. No alteration of density. No evidence for acute infarction. EXTRAAXIAL SPACES: Mild age-related involutional change. No fluid collections. No masses. ORBITS AND GLOBE: No intra- or extraconal masses. Normal contour of globe without masses. CALVARIUM: No fracture. PARANASAL SINUSES: No fluid or mucosal thickening. SOFT TISSUES: No mass or hematoma. OTHER: No other significant finding. IMPRESSION: NO DEFINITE CT EVIDENCE OF ACUTE ISCHEMIA, HEMORRHAGE, OR MASS LESION. MILD SENESCENT C HANGE ABOVE WITH POSSIBLE SUBACUTE VERSUS CHRONIC INFARCTION INVOLVING THE LEFT POSTERIOR FRONTAL LOBE. CORRELATE WITH PATIENT'S SYMPTOMS. EVIDENCE OF ACUTE STROKE: NO. TECHNICAL DOCUMENTATION: JOB ID: [id number] Quality ID # [id number]: Final reports with documentation of one or more dose reduction techniques (e.g., Au tomated exposure control, adjustment of the mA and/or kV according to patient size, use of iterative reconstruction technique) 2010 [email or web address]- All Rights Reserved Reading location - IP/workstation name: [email or web address]
[2017-10-04 00:03] VITALS: BP 139/79
--- NOTE | 2017-10-04 09:43 | EKG REPORT ---
SEVERITY:- ABNORMAL ECG - SINUS RHYTHM WITH PAC, AND RUN OF VENTRICULAR PREMATURE COMPLEXES = VENT TACH PROBABLE LEFT ATRIAL ABNORMALITY PROBABLE INFEROLATERAL INFARCT, AGE INDETERM ANTERIOR INFARCT, AGE INDETERMINATE BORDERLINE PROLONGED QT INTERVAL : Confirmed by: Nicholas Chaudhry MD 04-Oct-2017 09:42:16
== END 2017-10-04 00:03 | disposition short-term general hospital (02) ==
LOC: ER 16:16
DX: Q24.8 Other specified congenital malformations of heart (principal); I47.2 Ventricular tachycardia; R55 Syncope and collapse; I25.10 Atherosclerotic heart disease of native coronary artery without angina pectoris; I25.2 Old myocardial infarction; I10 Essential (primary) hypertension; J44.9 Chronic obstructive pulmonary disease, unspecified; R06.02 Shortness of breath
CPT/HCPCS: 93005 ×2; 99291; 96365; 96366; 36415; 82550; 83735; 85025; 85610; 85730; 80053; 81001; 84484; 82803; 71045; 70450; 93010 ×2; A9270; J7060; J0282

== ENCOUNTER → 2017-12-04 | Outpatient (CLI) | payer MEDICARE, MEDICAID ==
--- NOTE | 2017-12-04 12:36 | RADIOLOGY REPORT (SQ) ---
EXAM DESCRIPTION: CT CHEST WITH; CT ABD/PELVIS WITH IV ONLY COMPLETED DATE/TIME: 12/04/2017 10:33 am REASON FOR STUDY: LUNG CA (C34.32) C34.32 MALIGNANT NEOPLASM OF LOWER LOBE, LEFT BRONCHUS OR ANGELINE COMPARISON: CT lung biopsy 01/29/2017 PET-CT 01/24/2017 CT chest 01/02/2017 CONTRAST TYPE AND DOSE: contrast/concentration: Isovue 370.00 mg/ml; Total Contrast Delivered: 76.0 ml; Total Saline Delivered: 67.0 ml RENAL FUNCTION: Creatinine 1.1 TECHNIQUE: CT scan of the chest performed using helical scanning technique with dynamic intravenous contrast injection. Images reviewed with lung, soft tissue and bone windows. Reconstructed coronal a nd sagittal MPR images reviewed. All images stored on PACS. CT scan of the abdomen and pelvis performed with intravenous and without oral contrastusing helical s tammy technique with dynamic intravenous contrast injection. Images reviewed with lung, soft tissu e and bone windows. Reconstructed coronal and sagittal MPR images reviewed. Delayed images for eval uation of the urinary system also acquired and evaluated. All images stored on PACS. All CT scanners at this facility use dose modulation, iterative reconstruction, and/or weight based d osing when appropriate to reduce radiation dose to as low as reasonably achievable (ALARA). [facility]: Dose Right [facility]: CareDose [facility]: Dose Right [facility]: Teradose 4D [facility]: [employer] RADIATION DOSE: CT Rad equipment meets quality standard of care and radiation dose reduction techniq ues were employed. CTDIvol: 5.3 - 7.3 mGy. DLP: 939 mGy-cm. . LIMITATIONS: None. FINDINGS: CHEST: LUNGS AND PLEURA: Left lower lobe radiotherapy treatment markers are present. In the periphery of th e left lower lobe, a pleural-based nodule is present, 3 x 2.4 x 3.3 cm in size (was 3 x 1.6 x 2.4 cm on 01/02/2017). Today's study shows that the lower half of the nodule is small and sclerotic, upper h desire of the nodule is more prominent than on previous studies. These changes are best shown on sagitt al reconstruction images 54 through 56. No other lung parenchymal nodules are identified. No acute infiltrates. No pleural effusion. No pn eumothorax. Upper lobes exhibit obstructive lung disease. HILAR AND MEDIASTINAL STRUCTURES: Decrease in mediastinal adenopathy compared to studies from December d January 2017 as follows: Right paratracheal 1.1 x 0.8 cm lymph node today (was 2 x 1.2 cm on 01/24/2017). Precarinal 1.7 x 0.8 cm lymph node (was 2 x 1.2 cm on 01/24/2017). Left hilar 0.9 x 0.5 cm lymph node (was 2.2 x 1 cm on 01/24/2017). Right hilar lymph nodes seen on 01/24/2017 are no longer identified. HEART AND VASCULAR STRUCTURES: No aneurysm or dissection. No central pulmonary emboli. No pericardi al effusion. 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 HARDWARE: Old sternotomy for CABG. Left-sided pacemaker. THYROID AND OTHER SOFT TISSUES: No masses. No adenopathy. BONES: No significant finding. OTHER: No other significant finding. ABDOMEN AND PELVIS: LIVER: Normal size. No masses. No dilated ducts. SPLEEN: Normal size. No focal lesions. PANCREAS: No masses. No significant calcifications. No adjacent inflammation or peripancreatic fluid collections. Pancreatic duct not dilated. GALLBLADDER: Multiple gallstones are present. No gallbladder wall thickening or pericholecystic flui d. ADRENAL GLANDS: No significant masses or asymmetry. RIGHT KIDNEY AND URETER: No solid masses. No significant calcification. No hydronephrosis or hydroure ter. LEFT KIDNEY AND URETER: No solid masses. No significant calcification. No hydronephrosis or hydrouret er. AORTA AND VESSELS: No aneurysm. No dissection. Renal arteries, SMA, celiac without stenosis. RETROPERITONEUM: No retroperitoneal adenopathy, hemorrhage or masses. BOWEL AND PERITONEAL CAVITY: No masses or inflammatory changes. No free fluid or peritoneal masses. APPENDIX: Normal. ABDOMINAL WALL: No masses. No hernias. PELVIS: Streak artifact from bilateral total hip replacements obscures pelvic organs. BONES: No significant or acute findings. OTHER: No other significant finding. IMPRESSION: Increase in size of the pleural-based left lower lobe nodule, particularly along its sup erior aspect Decrease in adenopathy along the mediastinum and yogi compared to 01/24/[address] evidence of metastatic disease given history of lung cancer NORMAL CT OF THE ABDOMEN AND PELVIS WITH ORAL AND INTRAVENOUS CONTRAST. TECHNICAL DOCUMENTATION: JOB ID: [id number] Quality ID # [id number]: Final reports with documentation of one or more dose reduction techniques (e.g., Au tomated exposure control, adjustment of the mA and/or kV according to patient size, use of iterative reconstruction technique) 2010 [employer]- All Rights Reserved Reading location - IP/workstation name: [facility]
== END ==
LOC: RAD 09:46
PROVIDERS: ATTEND Internal Medicine
DX: C34.32 Malignant neoplasm of lower lobe, left bronchus or lung (principal)
CPT/HCPCS: 71260; 74177; 82565

== ENCOUNTER 2018-03-07 12:06 | Emergency (ER) | payer MEDICARE, MEDICAID ==
[2018-03-07] MEDS ORDERED: NORMAL SALINE 500 ML IV ONE (12:45)
[2018-03-07] MEDS ORDERED: KETOROLAC TROMETHAMINE INJ/PF 30 MG/1 ML SDV IV ONE (12:46)
[2018-03-07] MEDS ORDERED: ONDANSETRON HCL INJ/PF 4 MG/2 ML SDV IV ONE (12:47)
[2018-03-07] MEDS ORDERED: BISACODYL 10 MG SUPP.RECT PR ONE (12:47)
--- NOTE | 2018-03-07 12:49 | ER Document Report ---
ED Medical Screen (RME) - General Chief Complaint: Abdominal Pain Stated Complaint: ABDOMINAL PAIN Time Seen by Provider: 03/07/18 12:41 Mode of Arrival: Ambulatory Information source: Patient Notes: Patient complained of abdominal pain and constipation. Has been taking narcotics for pain. She denies any chest pain or diarrhea. I have greeted and performed a rapid initial assessment of this patient. A comprehensive ED assessment and evaluation of the patient, analysis of test results and completion of the medical decision making process will be conducted by additional ED providers. TRAVEL OUTSIDE OF THE [place] IN LAST 30 DAYS: No - Related Data Allergies/Adverse Reactions: lisinopril Allergy (Severe, Verified 03/07/18 12:42) Past Medical History - Social History Chew tobacco use (# tins/day): No Frequency of alcohol use: None Drug Abuse: None - Past Medical History Cardiac Medical History: Reports: Hx Coronary Artery Disease, Hx Heart Attack - 2008, CABG (2 vessels), Jun 2013 cardiac cath with stent x 1, Hx Hypertension Denies: Hx Atrial Fibrillation, Hx Congestive Heart Failure, Hx Hypercholesterolemia, Hx Peripheral Vascular Disease, Hx Heart Murmur Pulmonary Medical History: Reports: Hx COPD Denies: Hx Asthma, Hx Bronchitis, Hx Pneumonia Neurological Medical History: Denies: Hx Cerebrovascular Accident, Hx Seizures Renal/ Medical History: Denies: Hx Peritoneal Dialysis Malignancy Medical History: Denies: Hx Leukemia GI Medical History: Denies: Hx Crohn's Disease, Hx Gastroesophageal Reflux Disease, Hx Hiatal Hernia, Hx Irritable Bowel, Hx Liver Failure, Hx Pancreatitis , Hx Ulcer Musculoskeltal Medical History: Reports Hx Arthritis, Denies Hx Fibromyalgia, Denies Hx Multiple Sclerosis, Denies Hx Muscular Dystrophy Psychiatric Medical History: Reports: Hx Depression Denies: Hx Bipolar Disorder, Hx Dementia, Hx Post Traumatic Stress Disorder, Hx Schizophrenia Traumatic Medical History: Denies: Hx Fractures Infectious Medical History: Denies: Hx HIV Past Surgical History: Reports: Hx Cardiac Catheterization - STENT X 2, Hx Cardiac Surgery, Hx Coronary Artery Bypass Graft - 2008 (2 vessels), Hx Hysterectomy, Hx Orthopedic Surgery - bilateral hip replacements. Denies: Hx Appendectomy, Hx Bowel Surgery, Hx Section, Hx Cholecystectomy, Hx Colostomy, Hx Gastric Bypass Surgery, Hx Herniorrhaphy, Hx Mastectomy, Hx Pacemaker, Hx Tonsillectomy, Hx Tubal Ligation - Immunizations Hx Diphtheria, Pertussis, Tetanus Vaccination: No - unknown Physical Exam - Vital signs Vitals: Temp Pulse Resp BP Pulse Ox 98.1 F 80 16 100/51 L 100 03/07/18 12:14 03/07/18 12:14 03/07/18 12:14 03/07/18 12:14 03/07/18 12:14 Course - Vital Signs Vital signs: Temp Pulse Resp BP Pulse Ox 98.1 F 80 16 100/51 L 100 03/07/18 12:14 03/07/18 12:14 03/07/18 12:14 03/07/18 12:14 03/07/18 12:14 Doctor's Discharge - Discharge Referrals: MADELEINE BARBER PA-C [Primary Care Provider] - Follow up as needed
--- NOTE | 2018-03-07 14:08 | RADIOLOGY REPORT (SQ) ---
EXAM DESCRIPTION: CT ABD/PELVIS NO ORAL OR IV COMPLETED DATE/TIME: 03/07/2018 1:45 pm REASON FOR STUDY: abdominal pain COMPARISON: PET-CT 01/24/2017 CT abdomen pelvis 12/04/2017 TECHNIQUE: CT scan of the abdomen and pelvis performed without intravenous or oral contrast. Images reviewed with lung, soft tissue, and bone windows. Reconstructed coronal and sagittal MPR images revi ewed. All images stored on PACS. All CT scanners at this facility use dose modulation, iterative reconstruction, and/or weight based d osing when appropriate to reduce radiation dose to as low as reasonably achievable (ALARA). [facility]: Dose Right [facility]: CareDose [facility]: Dose Right [facility]: Teradose 4D [facility]: [employer] RADIATION DOSE: CT Rad equipment meets quality standard of care and radiation dose reduction techniq ues were employed. CTDIvol: 7.9 mGy. DLP: 406 mGy-cm.mGy. LIMITATIONS: None. FINDINGS: LOWER CHEST: The left lower lobe malignant nodule seen on CT 12/04/2017 is incompletely inc luded in the field of view. Radiotherapy treatment markers are present. NON-CONTRASTED LIVER, SPLEEN, ADRENALS: Evaluation limited by lack of IV contrast. No identified sign ificant masses. PANCREAS: No masses. No peripancreatic inflammatory changes. GALLBLADDER: Multiple tiny gallstones are present without gallbladder wall thickening or pericholecys tic fluid. RIGHT KIDNEY AND URETER: No suspicious masses. Assessment limited by lack of IV contrast. 2 mm righ t lower pole calcification coronal image 42, possible intrarenal nonobstructive stone. No hydroneph rosis or hydroureter. LEFT KIDNEY AND URETER: No suspicious masses. Assessment limited by lack of IV contrast. No signifi cant calcifications. No hydronephrosis or hydroureter. AORTA AND RETROPERITONEUM: No aneurysm. No retroperitoneal masses or adenopathy. BOWEL AND PERITONEAL CAVITY: Large amount of stool throughout the colon. Nonobstructive bowel gas p attern. No free intraperitoneal air. No obvious masses or inflammatory changes. No free fluid. APPENDIX: Normal. PELVIS, BLADDER, AND ABDOMINAL WALL:No abnormal masses. No free fluid. Bladder normal. Post hysterec ilsa. Streak artifact through the pelvis from bilateral hip replacement BONES: No significant findings. OTHER: No other significant finding. IMPRESSION: Large amount of stool throughout the colon COMMENT: Quality ID # 436: Final reports with documentation of one or more dose reduction techniques (e.g., Automated exposure control, adjustment of the mA and/or kV according to patient size, use of iterative reconstruction technique) TECHNICAL DOCUMENTATION: JOB ID: [id number] [employer]- All Rights Reserved Reading location - IP/workstation name: [facility]
[2018-03-07 14:34] LABS: ABSOLUTE EOSINOPHILS # (AUTO) 0.4 10^3/uL (0.0-0.6); ABSOLUTE LYMPHOCYTES (AUTO) 1.2 10^3/uL (0.5-4.7); ABSOLUTE MONOCYTES (AUTO) 0.7 10^3/uL (0.1-1.4); ABSOLUTE NEUT (AUTO) 7.4 10^3/uL (1.7-8.2); BASOPHILS % (AUTO) 0.5 % (0-2); EOSINOPHILS % (AUTO) 3.8 % (0-6); HEMATOCRIT 35.3 % (36.0-47.0); HEMOGLOBIN 11.7 g/dL (12.0-15.5); LYMPHOCYTES % (AUTO) 12.4 % (13-45); MEAN CORPUSCULAR HEMOGLOBIN 31.2 pg (27.0-33.4); MEAN CORPUSCULAR HGB CONC 33.3 g/dL (32.0-36.0); MEAN CORPUSCULAR VOLUME 94 fl (80-97); MONOCYTES % (AUTO) 7.5 % (3-13); PLATELET COUNT 444 10^3/uL (150-450); RED BLOOD COUNT 3.77 10^6/uL (3.72-5.28); RED CELL DISTRIBUTION WIDTH 15.5 % (11.5-14.0); SEGMENTED NEUTROPHILS % (AUTO) 75.8 % (42-78); TOTAL CELLS COUNTED % (AUTO) 100 %; WHITE BLOOD COUNT 9.7 10^3/uL (4.0-10.5)
[2018-03-07 14:53] LABS: ALANINE AMINOTRANSFERASE 16 U/L (9-52); ALKALINE PHOSPHATASE 70 U/L (38-126); ANION GAP 6 (5-19); ASPARTATE AMINO TRANSFERASE 26 U/L (14-36); BILIRUBIN,DIRECT 0.6 mg/dL (0.0-0.4); BILIRUBIN,TOTAL 0.7 mg/dL (0.2-1.3); BLOOD UREA NITROGEN 14 mg/dL (7-20); CALCIUM 9.1 mg/dL (8.4-10.2); CARBON DIOXIDE 26 mmol/L (22-30); CHLORIDE 109 mmol/L (98-107); GLUCOSE 96 mg/dL (75-110); POTASSIUM 4.8 mmol/L (3.6-5.0); SODIUM 141.2 mmol/L (137-145); TOTAL PROTEIN 8.5 g/dL (6.3-8.2)
[2018-03-07] MEDS ORDERED: MAGNESIUM CITRATE 296 ML BOTTLE PO ONE (15:00)
--- NOTE | 2018-03-07 15:15 | ER Document Report ---
ED General - General Chief Complaint: Abdominal Pain Stated Complaint: ABDOMINAL PAIN Time Seen by Provider: 03/07/18 12:41 Mode of Arrival: Ambulatory TRAVEL OUTSIDE OF THE [place] IN LAST 30 DAYS: No - HPI Patient complains to provider of: Abdominal pain Onset: Other - Female that presents for evaluation of hard bowel movements over the last 2 days. She has some cramping in her abdomen she has been utilizing Colace without any improvement in her symptoms. She denies any fevers or chills , denies any emesis, denies any dysuria. Has had similar episodes in the past without any improvement in her symptoms secondary to utilizing manual disimpaction at home. - Related Data Allergies/Adverse Reactions: lisinopril Allergy (Severe, Verified 03/07/18 12:42) Past Medical History - General Information source: Patient - Social History Smoking Status: Never Smoker Chew tobacco use (# tins/day): No Frequency of alcohol use: None Drug Abuse: None Family History: Reviewed & Not Pertinent Patient has suicidal ideation: No Patient has homicidal ideation: No - Past Medical History Cardiac Medical History: Reports: Hx Coronary Artery Disease, Hx Heart Attack - 2008, CABG (2 vessels), Jun 2013 cardiac cath with stent x 1, Hx Hypertension Denies: Hx Atrial Fibrillation, Hx Congestive Heart Failure, Hx Hypercholesterolemia, Hx Peripheral Vascular Disease, Hx Heart Murmur Pulmonary Medical History: Reports: Hx COPD Denies: Hx Asthma, Hx Bronchitis, Hx Pneumonia Neurological Medical History: Denies: Hx Cerebrovascular Accident, Hx Seizures Renal/ Medical History: Denies: Hx Peritoneal Dialysis Malignancy Medical History: Denies: Hx Leukemia GI Medical History: Denies: Hx Crohn's Disease, Hx Gastroesophageal Reflux Disease, Hx Hiatal Hernia, Hx Irritable Bowel, Hx Liver Failure, Hx Pancreatitis , Hx Ulcer Musculoskeletal Medical History: Reports Hx Arthritis, Denies Hx Fibromyalgia, Denies Hx Multiple Sclerosis, Denies Hx Muscular Dystrophy Psychiatric Medical History: Reports: Hx Depression Denies: Hx Bipolar Disorder, Hx Dementia, Hx Post Traumatic Stress Disorder, Hx Schizophrenia Traumatic Medical History: Denies: Hx Fractures Infectious Medical History: Denies: Hx HIV Past Surgical History: Reports: Hx Cardiac Catheterization - STENT X 2, Hx Cardiac Surgery, Hx Coronary Artery Bypass Graft - 2008 (2 vessels), Hx Hysterectomy, Hx Orthopedic Surgery - bilateral hip replacements. Denies: Hx Appendectomy, Hx Bowel Surgery, Hx Section, Hx Cholecystectomy, Hx Colostomy, Hx Gastric Bypass Surgery, Hx Herniorrhaphy, Hx Mastectomy, Hx Pacemaker, Hx Tonsillectomy, Hx Tubal Ligation - Immunizations Hx Diphtheria, Pertussis, Tetanus Vaccination: No - unknown Review of Systems - Review of Systems -: Yes All other systems reviewed and negative Physical Exam - Vital signs Vitals: Temp Pulse Resp BP Pulse Ox 98.1 F 80 16 100/51 L 100 03/07/18 12:14 03/07/18 12:14 03/07/18 12:14 03/07/18 12:14 03/07/18 12:14 - General General appearance: Appears well In distress: None - HEENT Head: Normocephalic Eyes: Normal Conjunctiva: Normal Cornea: Normal Extraocular movements intact: Yes - Respiratory Respiratory status: No respiratory distress Chest status: Nontender Breath sounds: Normal Chest palpation: Normal - Cardiovascular Rhythm: Regular Heart sounds: Normal auscultation Murmur: No - Abdominal Inspection: Normal Distension: No distension Tenderness: Nontender Organomegaly: No organomegaly - Back Back: Normal - Extremities General upper extremity: Normal inspection, Nontender, Normal ROM, Normal strength General lower extremity: Normal inspection, Nontender, Normal ROM, Normal strength, Normal weight bearing Course - Re-evaluation Re-evalutation: 03/07/18 17:02 This 67-year-old woman who presents for abdominal pain and constipation. Through triage she underwent CT imaging as well as multiple lab tests. The abdomen disc demonstrates diffuse tenderness without any appreciable rebound and no appreciable guarding. There is marked stool burden throughout the abdomen, there is no appreciable leukocytosis no obvious surgical abdomen at this time. Digital rectal examination there is soft stool in the rectal vault without any appreciable obstructive process. Because of the concern for this patient potentially having constipation will administer magnesium citrate. We will plan for this patient to undergo discharge with return precautions follow-up with her primary physician as she is able tolerate p.o. and her abdominal examination is relatively benign at this time. Do not believe this represents diverticular disease do not believe this represents appendicitis or some other more serious process. - Vital Signs Vital signs: Temp Pulse Resp BP Pulse Ox 98 F 82 18 133/71 H 98 03/07/18 15:46 03/07/18 15:46 03/07/18 15:46 03/07/18 15:46 03/07/18 15:46 - Laboratory Result Diagrams: 03/07/18 14:20 03/07/18 14:20 Laboratory results interpreted by me: 03/07/18 03/07/18 14:20 14:20 Hgb 11.7 L Hct 35.3 L RDW 15.5 H Lymphocytes % 12.4 L Chloride 109 H Est GFR ( Amer) 52 L Est GFR (Non-Af Amer) 43 L Direct Bilirubin 0.6 H Total Protein 8.5 H Discharge - Discharge Clinical Impression: Constipation Qualifiers: Constipation type: unspecified constipation type Qualified Code(s): K59.00 - Constipation, unspecified Abdominal pain Qualifiers: Abdominal location: unspecified location Qualified Code(s): R10.9 - Unspecified abdominal pain Condition: Good Disposition: HOME, SELF-CARE Instructions: Abdominal Pain ([facility]), Bulk Laxatives Prescriptions: Container,Empty [Enema Bottle] 1 each MC DAILY 3 Days #3 bottle Polyethylene Glycol 3350 [Miralax Powder 17 gm/Packet] 1 packet PO BID #1 pkg Referrals: MADELEINE BARBER PA-C [NO LOCAL MD] - Follow up as needed
[2018-03-07 15:46] VITALS: BP 133/71
== END 2018-03-07 15:46 | disposition home or self-care (01) ==
LOC: ER 12:06
DX: K59.00 Constipation, unspecified (principal); R10.9 Unspecified abdominal pain; I25.10 Atherosclerotic heart disease of native coronary artery without angina pectoris; I25.2 Old myocardial infarction; I10 Essential (primary) hypertension; J44.9 Chronic obstructive pulmonary disease, unspecified
CPT/HCPCS: 99284; 96361; 96374; 96375; 36415; 83690; 85025; 80053; 74176; J3490; J1885; J2405

== ENCOUNTER → 2018-06-26 | Outpatient (CLI) | payer MEDICARE, MEDICAID ==
--- NOTE | 2018-06-26 11:07 | RADIOLOGY REPORT (SQ) ---
EXAM DESCRIPTION: CT CHEST WITH COMPLETED DATE/TIME: 06/26/2018 9:19 am REASON FOR STUDY: LUNG CA (C34.32) C34.32 MALIGNANT NEOPLASM OF LOWER LOBE, LEFT BRONCHUS OR ANGELINE COMPARISON: 12/04/2017 TECHNIQUE: CT scan of the chest performed using helical scanning technique with dynamic intravenous contrast injection. Images reviewed with lung, soft tissue and bone windows. Reconstructed coronal and sagittal MPR and MIP images reviewed. All images stored on PACS. All CT scanners at this facility use dose modulation, iterative reconstruction, and/or weight based d osing when appropriate to reduce radiation dose to as low as reasonably achievable (ALARA). [facility]: Dose Right [facility]: CareDose [facility]: Dose Right [facility]: Teradose 4D [facility]: [employer] CONTRAST TYPE AND DOSE: See separate report of the same date. RENAL FUNCTION: See separate report. RADIATION DOSE: . LIMITATIONS: None. FINDINGS: LUNGS AND PLEURA: Increase in size of pleural-based mass left lower lobe 3.0 x 4.2 cm, pre viously 2.4 x 3.0 cm. New right lower lobe nodule 1.3 x 1.1 cm. HILAR AND MEDIASTINAL STRUCTURES: No identified masses or abnormal nodes. HEART AND VASCULAR STRUCTURES: Left ventricular aneurysm 3.6 cm in diameter, increased from 2.7 cm. HARDWARE: CABG. Defibrillator. UPPER ABDOMEN: See separate report of the CT of the abdomen. THYROID AND OTHER SOFT TISSUES: No masses. No adenopathy. BONES: Nothing acute. OTHER: No other significant finding. IMPRESSION: 1. New nodule right lower lobe. Enlarging mass left lower lobe. 2. Increase in size of left ventricular aneurysm. TECHNICAL DOCUMENTATION: JOB ID: [id number] Quality ID # [id number]: Final reports with documentation of one or more dose reduction techniques (e.g., Au tomated exposure control, adjustment of the mA and/or kV according to patient size, use of iterative reconstruction technique) 2010 [employer]- All Rights Reserved Reading location - IP/workstation name: [email or web address]
--- NOTE | 2018-06-26 11:12 | RADIOLOGY REPORT (SQ) ---
EXAM DESCRIPTION: CT ABD/PELVIS WITH IV ONLY COMPLETED DATE/TIME: 06/26/2018 9:19 am REASON FOR STUDY: LUNG CA (C34.32) C34.32 MALIGNANT NEOPLASM OF LOWER LOBE, LEFT BRONCHUS OR ANGELINE COMPARISON: 03/07/2018 TECHNIQUE: CT scan of the abdomen and pelvis performed using helical scanning technique with dynamic intravenous contrast injection. No oral contrast. Images reviewed with lung, soft tissue, and bone windows. Reconstructed coronal and sagittal MPR images reviewed. Delayed images for evaluation of the urinary system also acquired. All images stored on PACS. All CT scanners at this facility use dose modulation, iterative reconstruction, and/or weight based d osing when appropriate to reduce radiation dose to as low as reasonably achievable (ALARA). [facility]: Dose Right [facility]: CareDose [facility]: Dose Right [facility]: Teradose 4D [facility]: [employer] CONTRAST TYPE AND DOSE: contrast/concentration: Isovue 350.00 mg/ml; Total Contrast Delivered: 80.0 ml; Total Saline Delivered: 68.0 ml RENAL FUNCTION: Creatinine 1.3 RADIATION DOSE: CT Rad equipment meets quality standard of care and radiation dose reduction techniq ues were employed. CTDIvol: 4.4 - 7.5 mGy. DLP: 955 mGy-cm.. LIMITATIONS: Artifact from bilateral hip arthroplasty. FINDINGS: LOWER CHEST: See separate report of the CT of the chest. LIVER: Normal size. No masses. No dilated ducts. SPLEEN: Normal size. No focal lesions. PANCREAS: No masses. No significant calcifications. No adjacent inflammation or peripancreatic fluid collections. Pancreatic duct not dilated. GALLBLADDER: Gallstones. No inflammatory changes to suggest cholecystitis. ADRENAL GLANDS: No significant masses or asymmetry. RIGHT KIDNEY AND URETER: No solid masses. No significant calcifications. No hydronephrosis or hyd roureter. LEFT KIDNEY AND URETER: No solid masses. No significant calcifications. No hydronephrosis or hydr oureter. AORTA AND VESSELS: Ectasia. No aneurysm. RETROPERITONEUM: No retroperitoneal adenopathy, hemorrhage or masses. BOWEL AND PERITONEAL CAVITY: No masses or inflammatory changes. No free fluid or peritoneal masses. APPENDIX: Normal. PELVIS: No mass. No free fluid. Normal bladder. ABDOMINAL WALL: Small fat containing umbilical hernia. BONES: Nothing acute. OTHER: No other significant finding. IMPRESSION: No evidence of metastatic disease. TECHNICAL DOCUMENTATION: JOB ID: [id number] Quality ID # [id number]: Final reports with documentation of one or more dose reduction techniques (e.g., Au tomated exposure control, adjustment of the mA and/or kV according to patient size, use of iterative reconstruction technique) 2010 [employer]- All Rights Reserved Reading location - IP/workstation name: [email or web address]
== END ==
LOC: RAD 08:25
PROVIDERS: ATTEND Internal Medicine
DX: C34.32 Malignant neoplasm of lower lobe, left bronchus or lung (principal); R91.1 Solitary pulmonary nodule; I25.3 Aneurysm of heart
CPT/HCPCS: 71260; 74177; 82565

== ENCOUNTER → 2018-07-12 | Outpatient (CLI) | payer MEDICARE, MEDICAID ==
--- NOTE | 2018-07-13 08:35 | RADIOLOGY REPORT (SQ) ---
EXAM DESCRIPTION: PET CT SKULL/THIGH COMPLETED DATE/TIME: 07/12/2018 6:38 pm REASON FOR STUDY: LUNG CANCER C34.32 MALIGNANT NEOPLASM OF LOWER LOBE, LEFT BRONCHUS OR ANGELINE COMPARISON: PET-CT 01/24/2017 CT chest abdomen pelvis 06/26/2018, 12/04/2017, 01/29/2017 RADIONUCLIDE AND DOSE: 10 mCi F18 FDG The route of agent administration: Intravenous FASTING BLOOD SUGAR: 93 mg/dl CONTRAST TYPE AND DOSE: No CT contrast given. TECHNIQUE: Blood glucose level was verified. Above dose of FDG was injected intravenously. 2-D seg mented attenuation correction images were obtained from the base of the skull to the midthighs. Nonc ontrast CT images were obtained for attenuation correction and fusion with emission images. CT image s were performed without oral or intravenous contrast and are not sensitive for parenchymal lesions. A series of overlapping emission PET images were obtained. Images reviewed and manipulated at [facility] work station by the radiologist. Images stored on PACS. LIMITATIONS: None. FINDINGS: HEAD AND NECK: No areas of abnormal metabolic activity in the soft tissues of the head and neck. CHEST: The left lower lobe mass measures 4 x 3 cm in diameter on axial image 89/255, with SUV of 9. This is similar compared to CT chest abdomen pelvis 06/26/2018, and larger than on PET-CT 01/24/2017 (was 2.6 x 1.5 cm with SUV 6.6 on PET-CT 01/24/2017). A 1.3 x 1 cm nodule is present in the superior segment right lower lobe axial image 84/255 with SUV o f 4.8. This is unchanged from CT chest abdomen pelvis 06/26/2018, and new compared to CT chest abdomen pelvis 12/04/2017. Persistent precarinal lymph node 2.4 x 1 cm in size with SUV of 3.3 (was 2.1 x 1.2 cm with SUV 4.3 on 01/24/2017 PET-CT). ABDOMEN AND PELVIS: No areas of abnormal metabolic activity in the abdomen or pelvis. Expected physi ologic activity is present in the genitourinary system and bowel. PROXIMAL LOWER EXTREMITIES: No areas of abnormal metabolic activity in the soft tissues of the lower extremities. BONES: No abnormal metabolic activity in the visualized skeleton. ADDITIONAL CT FINDINGS: Old sternotomy and CABG. Left-sided pacemaker. Persistent 4 cm aneurysm at the apex of the left ventricle, calcified gallstones in the gallbladder. Bilateral total hip replace ments with streak artifact through the pelvis OTHER: No other significant findings. IMPRESSION: Hypermetabolic lung lesions worrisome for malignancy. TECHNICAL DOCUMENTATION: JOB ID: [id number] [employer]- All Rights Reserved Reading location - IP/workstation name: [facility]
== END ==
LOC: RAD 14:17
PROVIDERS: ATTEND Internal Medicine
DX: C34.32 Malignant neoplasm of lower lobe, left bronchus or lung (principal)
CPT/HCPCS: 78815; A9552

== ENCOUNTER → 2019-08-31 | Outpatient (CLI) | payer MEDICARE, MEDICAID ==
--- NOTE | 2019-08-31 16:23 | RADIOLOGY REPORT (SQ) ---
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 TECHNIQUE: Blood glucose level was verified. Above dose of FDG was injected intravenously. 2-D seg mented attenuation correction images were obtained from the base of the skull to the midthighs. Nonc ontrast CT images were obtained for attenuation correction and fusion with emission images. CT image s were performed without oral or intravenous contrast and are not sensitive for parenchymal lesions. A series of overlapping emission PET images were obtained. Images reviewed and manipulated at [facility] work station by the radiologist. Images stored on PACS. LIMITATIONS: None. FINDINGS: HEAD AND NECK: No areas of abnormal metabolic activity in the soft tissues of the head and neck. CHEST: Diffuse bilateral lower lobe airspace disease is present with SUV 3.4. This obscures visualiz ation of the right lower lobe nodule seen on PET-CT 07/12/2018. There is diffuse left lower lobe airspace disease with SUV of 3.4. A 2 x 1.6 cm cm nodule is present in the left lower lobe adjacent to fiducials with SUV of about 3.4 (was 4 x 3 cm in size PET-CT 07/20/2018 with SUV of 9). No pleural effusions. No other pulmonary nodules. ABDOMEN AND PELVIS: No areas of abnormal metabolic activity in the abdomen or pelvis. Expected physi ologic activity is present in the genitourinary system and bowel. PROXIMAL LOWER EXTREMITIES: No areas of abnormal metabolic activity in the soft tissues of the lower extremities. BONES: No abnormal metabolic activity in the visualized skeleton. ADDITIONAL CT FINDINGS: Cardiomegaly, left-sided pacemaker. Bilateral total hip replacements. Stone s in the gallbladder. OTHER: Liver background activity 2.0 SUV. Blood pool background activity 1.9 SUV IMPRESSION: There is diffuse bilateral lower lobe airspace disease on today's study which partially obscures the left lower lobe nodule. Left lower lobe nodule is small are and left metabolically acti ve than on prior PET-CT 07/12/2018. Right lower lobe nodule seen 07/12/2018 is difficult to visualize on today's study due to right lower lobe airspace disease. Fiducials are present in the right lower lobe adjacent to the consolidation No PET-CT evidence of widespread metastatic disease TECHNICAL DOCUMENTATION: JOB ID: [id number] 2010 [employer]- All Rights Reserved Reading location - IP/workstation name: [email or web address]
== END ==
LOC: RAD 11:09
PROVIDERS: ATTEND Physician Assistant Medical
DX: C34.32 Malignant neoplasm of lower lobe, left bronchus or lung (principal); I51.7 Cardiomegaly
CPT/HCPCS: 78815; A9552